=== PATIENT | male | born 1970 | race Caucasian/White ===

== ENCOUNTER 2022-04-09 08:13 | Outpatient (CLI) | payer BC, MEDICARE | END 2022-04-09 08:14 | disposition home or self-care (01) | LOC: CSHULT 08:13 | PROVIDERS: ATTEND Family Medicine | DX: Z82.71 Family history of polycystic kidney (principal); N28.1 Cyst of kidney, acquired; D73.89 Other diseases of spleen | CPT/HCPCS: 76700 ==

== ENCOUNTER 2022-07-30 13:13 | Emergency (ER) | payer BC, MEDICARE ==
[2022-07-30] MEDS ORDERED: Boostrix 0.5 ML (Tdap) VIAL (>/=7 yrs of age) ONE (14:04)
== END 2022-07-30 14:35 | disposition home or self-care (01) ==
LOC: CSHERS 13:13
DX: T63.2X1A Toxic effect of venom of scorpion, accidental (unintentional), initial encounter (principal)
CPT/HCPCS: 90471; 90715; 99283